=== PATIENT | male | born 1975 | race Hispanic/Latino ===

== ENCOUNTER 2021-12-02 11:37 | Outpatient (CLI) | payer BC | END 2021-12-02 11:38 | disposition home or self-care (01) | LOC: SCSMRI 11:37 | PROVIDERS: ATTEND Surgery | DX: S16.1XXA Strain of muscle, fascia and tendon at neck level, initial encounter (principal); M51.16 Intervertebral disc disorders with radiculopathy, lumbar region; R51.9 Headache, unspecified; M51.17 Intervertebral disc disorders with radiculopathy, lumbosacral region; M47.812 Spondylosis without myelopathy or radiculopathy, cervical region; M48.061 Spinal stenosis, lumbar region without neurogenic claudication | CPT/HCPCS: 70553; 72100; 72141; 72148 ==